=== PATIENT | male | born 1975 | race Caucasian/White ===

== ENCOUNTER 2019-10-14 07:49 | Inpatient (IN) ==
--- NOTE | 2019-10-05 10:32 | History & Physical Report ---
Date of Service October 05, 2019 Assessment & Plan (1) Neurogenic claudication due to lumbar spinal stenosis: This time the patient had a steady decline in status now with marked quad deficits with atrophy. Subsequently we are recommending urgent decompression and fusion at L2-3. This would include removal of instrumentation L3-S1. Hopefully he will be able to regain some quadricep strength and avoid permanent neurologic deficit and sequela. Present on Admission?: Yes History of Present Illness Chief Complaint: Back and bilateral leg pain Primary Care Provider: Zehra Altamirano This is a 44-year-old male who presents with marked decline in status with back and bilateral leg pain extending into his quadriceps and limiting his ability to stand and ambulate. Marked difficulty with ascending and descending stairs. He is failed extensive course of nonoperative care. Allergies Allergy/AdvReac Type Severity Reaction Status Date / Time No Known Allergies Allergy Unverified 09/06/14 21:59 Home Medications Home Medications Medication Instructions Recorded Confirmed Type Multivitamin 1 tab PO DAILY #0 tab 08/11/14 History Ergocalciferol (Vitamin D Cap) 50,000 inter.unit PO WK #0 cap 09/06/14 History Lansoprazole (Prevacid) 15 mg PO DAILY #0 cap 09/06/14 History Oxycodone HCl 5 - 10 mg PO Q4H PRN #120 tab 09/08/14 Rx Physical Exam Physical Exam: Patient is alert and oriented Patient is in obvious distress. He stands and ambulates with a stooped posture. He can only do so for short period time before he must sit down. He has no gross tension signs. He has diminished deep tendon reflexes. He did demonstrates 4/5 bilateral quadriceps and dorsiflexion with a 5 or 5 plantar flexion. Sensory is diminished to bilateral anterior thighs. Heart is regular rate and rhythm Lungs clear to auscultation Results & Data Diagnostic Findings MRI lumbar spine demonstrates evidence of previous lumbar decompression and fusion L3-S1. Instrumentation is placed in proper alignment well decompressed. At L2-3 is marked degenerative change to space collapse evidence of anterolisthesis and bilateral neural foraminal disease. Axillary views demonstrate severe central lateral recess stenosis subarticular disease L2-3.
--- NOTE | 2019-10-09 10:07 | Anesthesiology Consultation ---
Date of Service October 09, 2019 Assessment & Plan (1) Encounter for pre-operative examination: Chart Review Chart Review: Acceptable Risk for Surgery (pending preop testing DOS ) and Patient NOT seen in Pre Admission Testing Pt was not seen in PAT. No preop testing noted as of 10/09/19. Will order CBC, PRP, and EKG AM of surgery History Surgery Operation Date: 10/14/19 07:15 Proposed Procedures p L2-L3 Decompression and Fusion, L3-S1 Hardware Removal - Joey Villanueva DO Height/Weight Height: 5 ft 8 in Weight: 102.058 kg Allergies Allergy/AdvReac Type Severity Reaction Status Date / Time No Known Allergies Allergy Verified 10/09/19 09:28 Medications Home Medications Medication Instructions Recorded Confirmed Last Taken Cholesterol Medication 1 tab PO HS 10/09/19 10/09/19 Unknown cyanocobalamin (vitamin B-12) 1,000 mcg PO QAM 10/09/19 10/09/19 Unknown diclofenac sodium 50 mg PO BID 10/09/19 10/09/19 Unknown duloxetine [Cymbalta] 60 mg PO BID 10/09/19 10/09/19 Unknown ergocalciferol (vitamin D2) 50,000 unit PO WK 10/09/19 10/09/19 Unknown [Vitamin D2] folic acid 1 mg PO QAM 10/09/19 10/09/19 Unknown gabapentin 600 mg PO TID PRN 10/09/19 10/09/19 Unknown Past Medical History Medical History Borderline high blood pressure Chronic back pain Hyperlipidemia Past Family History Family History Father Family history of diabetes mellitus Past Surgical History Surgical History Fusion of spine LUMBAR SURGERY X 2 History of arthroscopy LEFT KNEE ACL History of cholecystectomy History of colonoscopy Hx of vasectomy Social History Smoking Status: Never smoker Do You Dip or Chew Tobacco: No Hx Alcohol Use: Yes Alcohol type: beer alcohol intake frequency: a few times a month Hx Substance Use: No substance use type: does not use
[~2019-10-14 07:49] MED LIST: ACETAMINOPHEN 500 MG TAB PO SCH; CEFAZOLIN 2000MG 2,000 MG/15 ML SYR IV SCH; CeleBREX 200 MG CAP PO SCH; GABAPENTIN 900 MG DOSE PO SCH; LR 15ML/HR IV SCH
[2019-10-14] MEDS ORDERED: fentaNYL citrate 100 MCG/2 ML VIAL IV PRN (08:53)
[2019-10-14] MEDS ORDERED: ONDANSETRON INJ 2 MG/ML 2 ML VIAL IV PRN ×2 (08:53→15:36)
[2019-10-14] MEDS ORDERED: ATROPINE SULFATE 0.1 MG/ML 10ML SYR IV PRN (08:53)
[2019-10-14] MEDS ORDERED: ePHEDrine sulfate 50 MG/ML AMP IV PRN (08:53)
[2019-10-14] MEDS ORDERED: HYDROmorphone INJ 0.5 MG/0.5 ML SYR IV PRN ×2 (08:55→15:36)
[2019-10-14 08:58] LABS: Partial Thromboplastin Ratio 0.9; Partial Thromboplastin Time 26.4 Seconds (21.0-31.0)
[2019-10-14] MEDS ORDERED: ONDANSETRON INJ 2 MG/ML 2 ML VIAL ONE (09:56)
[2019-10-14] MEDS ORDERED: ROCURONIUM BROMIDE 10 MG/ML 5 ML VIAL ONE ×5 (09:56→11:35)
[2019-10-14] MEDS ORDERED: NEOSTIGMINE METHYLSULFATE 5 MG/5 ML SYR ONE (09:56)
[2019-10-14] MEDS ORDERED: LIDOCAINE HCL 2% 2 ML VIAL/AMP(20MG/ML) INFIL ONE (09:56)
[2019-10-14] MEDS ORDERED: fentaNYL citrate 100 MCG/2 ML VIAL ONE ×2 (09:56→13:09)
[2019-10-14] MEDS ORDERED: MIDAZOLAM HCL 1 MG/ML 2ML VIAL ONE (09:56)
[2019-10-14] MEDS ORDERED: PROPOFOL IV EMULSION 10 MG/ML 20 ML VIAL IV ONE (09:56)
[2019-10-14] MEDS ORDERED: GLYCOPYRROLATE 0.2 MG/ML VIAL ONE (09:56)
--- NOTE | 2019-10-14 10:07 | History & Physical Bridge Note ---
Date of Service October 14, 2019 History & Physical Bridge Note I have examined the patient, reviewed the History & Physical and in the interval since the performance of the History & Physical I have noted the following changes of clinical significance: no changes noted
[2019-10-14] MEDS ORDERED: BACITRACIN INJ 50,000 UNIT VIAL ONE (10:42)
[2019-10-14] MEDS ORDERED: BUPIVACAINE/EPINEPHRINE 0.5% MPF 1:200,000 10 ML VIAL ONE (10:42)
[2019-10-14] MEDS ORDERED: PHENYLEPHRINE 100MCG/ML 5ML SYR ONE (11:35)
[2019-10-14] MEDS ORDERED: DEXAMETHASONE SOD INJ 4 MG/ML VIAL ONE (11:35)
[2019-10-14] MEDS ORDERED: FLOSEAL HEMOSTATIC MATRIX 10ML TOP ONE (12:11)
[2019-10-14] MEDS ORDERED: PHENYLEPHRINE HCL 10 MG/ML VIAL ONE (13:05)
[2019-10-14] MEDS ORDERED: SURGICEL ABSORB HEMOSTAT 2IN X 14IN TOP ONE (13:06)
--- NOTE | 2019-10-14 13:17 | Operative Report ---
Post Operative Report Pre & Post Diagnosis Operation Date: 10/14/19 09:15 Pre-Op Diagnosis: Neurogenic Claudication and Spinal Stenosis L2-L3; Previous Fusion L3-S1 Post-Op Diagnosis: Neurogenic Claudication and Spinal Stenosis L2-L3; Previous Fusion L3-S1 I identified the patient and participated in the time-out.: Yes Procedure Operation Date: 10/14/19 09:15 Actual Procedures #1 removal of segmental instrumentation L3-S1. #2 exploration of fusion L3 S1. #3 lumbar decompression with bilateral medial facetectomy foraminotomies L2-L3. #4 posterior spinal fusion L2-L3. #5 placement posterior instrumentation L2-3. #6 interbody fusion L2-3. #7 placed a peek cage 9 x 26 mm at L2-3. #8 placement locally harvested morselized autograft in the posterior lateral gutters. #9 placement infuse collagen sponge bone master graft in the posterior lateral gutters and ostial amp interbody space. Surgeon Joey Villanueva, DO Safety Net Maker Grazyna Horvath Estimated Blood Loss 500 Findings See Below Patient is 5 foot 8 inches tall weighing over 104 kg with a BMI of 35. This combined with an EBL of over 500 cc created significant technical difficulty requiring her deepest retractors and longer instruments in order to perform this procedure. This at least 50% increase to the operative time. Specimens None Indications This is a 44-year-old male who presents with marked decline in status increasing weakness and subsequently recommended urgent decompression fusion. Description of Procedure Patient was met with identified informed consent obtained. Patient was then taken to the operative suite underwent intubation placed in a prone position on the David table on top of the Yeyo frame. All bony prominences well-padded eyes inspected to ensure no external pressure was prompt at this point the lumbar spine was prepped and draped in a normal sterile fashion. Sharp dissection with the assistance of Bovie cautery was performed down to and exposing the lamina and transverse processes of L2 and instrumentation at L3-L4 and L5 and S1 levels bilaterally. Then proceeded move the hardware bilaterally exploring the fusion mass noting it to be intact. Then performed a complete laminectomy of L2 including bilateral medial facetectomies foraminotomies addressing severe spinal stenosis. Pedicle screws were then placed in L2 and L3 bilaterally with assistance of fluoroscopy and proper sized april placed. By way of a transforaminal approach on the left complete discectomy was performed endplates curetted to subcortical bleeding bone. Endplates curetted to subcortical bleeding bone and a 9 x 26 mm peek cage filled with osteo-bone graft tapped in position. The rods were then locked in final position bilaterally. The transverse processes of L to L3 burred to subcortical bleeding bone. Infuse collagen sponge mass graft local autograft was then placed in the posterior lateral gutters. 15 round RINA drain inserted. The incision was then closed with 1 Vicryl in the fascia 2-0 Vicryl subcutaneously and 4 Monocryl for final skin closure. Steri-Strip sterile dressings placed. Patient will continue to PACU stable disc. Please note spinal cord monitoring was utilized at the procedure no changes noted. Lastly Grazyna Horvath was present at the entire procedure involved the patient positioning complex portions of the surgery and final skin closure. I attest to the content of the Intraoperative Record and any orders documented therein. Any exceptions are noted below.
[2019-10-14] MEDS ORDERED: HYDROmorphone INJ 2 MG/ML SYR/VIAL ONE (13:24)
--- NOTE | 2019-10-14 13:39 | Fluoroscopy Report ---
FL lumbar spine 2-3V CLINICAL HISTORY: 44 years-old Male presenting with L2-3 DECOMP/FUSION, L3-S1 HARDWARE REMOVAL. TECHNIQUE: 2 fluoroscopic image(s) recorded as part of an intraoperative procedure. COMPARISON: 07/23/2012. FINDINGS/IMPRESSION: Bilateral posterior transpedicular screw and april fixation of two adjacent levels in the mid lumbar sp ine with interbody spacer and laminectomy. Additional interbody spacers noted at the level below this . Grossly normal anatomic alignment. Please see surgical report for further details. Fluoroscopy dosage (mGy): 8.38. Fluoroscopy time: 11.4 seconds. Number or time of high level fluoroscopy (HLF), digital spot, or digital subtraction images: 0. ACT 112: Negative or not required by law. Electronically signed by: Tony Newman M.D. 10/14/2019 1:38 PM
--- NOTE | 2019-10-14 14:21 | Anesthesiology Progress Note ---
Date of Service October 14, 2019 Anesthesia Post Procedure Vital Signs Vital Signs: Temp Pulse Pulse Resp BP Pulse Ox 10/14/19 14:15 64 15 97/65 L 94 10/14/19 14:05 77 19 102/74 95 10/14/19 13:59 97.3 F L 79 19 104/70 94 10/14/19 08:34 98.4 F 90 18 148/104 H 97 Pain Intensity Back: Pain Intensity: 2 Transfer of Care Handoff Completed per policy Notes Mental Status: alert / awake / arousable and participated in evaluation Patient Amnestic to Procedure: Yes Nausea / Vomiting: adequately controlled Pain: adequately controlled Airway Patency, RR, SpO2: stable & adequate BP & HR: stable & adequate Hydration State: stable & adequate Anesthetic Complications: no major complications apparent and Pt Satisfied with anesthetic care
[2019-10-14] MEDS ORDERED: DO NOT ADMINISTER FLU VACCINE PRN (15:36)
[2019-10-14] MEDS ORDERED: ACETAMINOPHEN 500 MG TAB PO PRN (15:36)
[2019-10-14] MEDS ORDERED: ACETAMINOPHEN 1,000 MG/100 ML VIAL IV PRN (15:36)
[2019-10-14] MEDS ORDERED: PROMETHAZINE HCL 12.5 MG in SODIUM CHLORIDE 0.9% 50 ML IV PRN (15:36)
[2019-10-14] MEDS ORDERED: DO NOT ADMINISTER PNEUMOCOCCAL VACCINE PRN (15:36)
[2019-10-14] MEDS ORDERED: LORazepam 0.5 MG/1 ML VIAL IV PRN (15:36)
[2019-10-14] MEDS ORDERED: LORazepam 0.5 MG TAB PO PRN (15:36)
[2019-10-14] MEDS ORDERED: SOD PHOSPHATE/SOD BIPHOSPHATE ENEMA 132 ML BTL PR PRN (15:36)
[2019-10-14] MEDS ORDERED: ALUMINUM/MAGNESIUM SUSP 30 ML UDC PO PRN (15:36)
[2019-10-14] MEDS ORDERED: bisacodyL 10 MG SUPP PR PRN (15:36)
[2019-10-14] MEDS ORDERED: TRAMADOL HCL 50 MG TABLET PO PRN (15:36)
[2019-10-14] MEDS ORDERED: HYDROmorphone INJ 1 MG/ML SYRINGE IV PRN (15:36)
[2019-10-14] MEDS ORDERED: MAGNESIUM HYDROXIDE SUSP 30 ML UDC PO PRN (15:36)
[2019-10-14] MEDS ORDERED: FAMOTIDINE 20 MG TAB PO PRN (15:36)
[2019-10-14] MEDS ORDERED: ONDANSETRON 4 MG OD TAB PO PRN (15:36)
[2019-10-14] MEDS ORDERED: NALOXONE HCL 0.4 MG/1 ML VIAL/CARP IV PRN (15:36)
[2019-10-14] MEDS ORDERED: METOCLOPRAMIDE HCL INJ 5 MG/ML 2 ML VIAL IV PRN (15:36)
[2019-10-14] MEDS: LACTATED RINGER'S 1,000 ML IV SCH (18:10)
[2019-10-14] MEDS: KETOROLAC 30 MG/ML VIAL IV SCH (18:11)
[2019-10-14] MEDS: OXYCODONE HCL IR 5 MG TAB (IMMEDIATE RELEASE) PO PRN (20:31)
[2019-10-14] MEDS: CEFAZOLIN 2000MG 2,000 MG/15 ML SYR IV SCH (20:32)
[2019-10-14] MEDS: DULOXETINE HCL 60 MG CAP PO SCH (20:33)
[2019-10-14] MEDS ORDERED: COUGH DROP (SUGAR FREE) LOZ 24 LOZ/1 BOX BUCCAL ONE (20:42)
[2019-10-14] MEDS ORDERED: ATORVASTATIN 40 MG TAB PO SCH (21:00)
[2019-10-14] MEDS ORDERED: TAMSULOSIN HCL 0.4 MG CAP PO SCH (21:00)
[2019-10-14] MEDS ORDERED: DOCUSATE SODIUM/SENNA 50/8.6MG TAB PO SCH (21:00)
[2019-10-15] MEDS: CEFAZOLIN 2000MG 2,000 MG/15 ML SYR IV SCH (03:51)
[2019-10-15 05:09] LABS: Hematocrit (blood only) 32.4 % (42-52); Hemoglobin 10.9 g/dL (14.0-18.0); Immature Granulocytes # (auto) 0.02 K/uL (0.00-0.02); Immature Granulocytes % (auto) 0.2 %; Lymphocytes # (auto) 1.26 K/uL (1.2-3.4); Lymphocytes % (auto) 10.5 %; Mean Corpuscular Hemoglobin 30.8 pg (25-34); Mean Corpuscular Hgb Conc 33.6 g/dL (32-36); Mean Corpuscular Volume 91.5 fL (80-100); Mean Platelet Volume 9.6 fL (7.4-10.4); Monocytes % (auto) 8.4 %; Neutrophils # (auto) 9.67 K/uL (1.4-6.5); Neutrophils % (auto) 80.9 %; Platelet Count 260 K/uL (130-400); RDW Coefficient of Variation 13.4 % (11.5-14.5); RDW Standard Deviation 44.6 fL (36.4-46.3); Red Blood Count 3.54 M/uL (4.7-6.1); White Blood Count 11.95 K/uL (4.8-10.8)
[2019-10-15] MEDS: LACTATED RINGER'S 1,000 ML IV SCH (05:09)
[2019-10-15 05:34] LABS: BUN Creatinine Ratio 21.2 (10-20); Creatinine Clr Calc Pharmacy 91.8 ml/min; Est GFR (Non-African American) 73.3
[2019-10-15] MEDS: POLYETHYLENE (MIRALAX) 17 GM PACK PO SCH ×2 (05:44→11:49)
[2019-10-15] MEDS: KETOROLAC 30 MG/ML VIAL IV SCH ×3 (05:44→11:49)
[2019-10-15] MEDS: DULOXETINE HCL 60 MG CAP PO SCH (08:33)
[2019-10-15] MEDS ORDERED: FOLIC ACID 1 MG TAB PO SCH (09:00)
[2019-10-15] MEDS ORDERED: CYANOCOBALAMIN 500 MCG TABLET (VITAMIN B-12) PO SCH (09:00)
[2019-10-15] MEDS ORDERED: PANTOprazole 40 MG TAB PO SCH (09:00)
[2019-10-15] MEDS: OXYCODONE HCL IR 5 MG TAB (IMMEDIATE RELEASE) PO PRN (14:47)
--- NOTE | 2019-10-15 14:52 | Discharge Summary ---
Date of Service October 15, 2019 Admission HPI Per Admitting Provider This is a 44-year-old male who presents with marked decline in status with back and bilateral leg pain extending into his quadriceps and limiting his ability to stand and ambulate. Marked difficulty with ascending and descending stairs. He is failed extensive course of nonoperative care. Principal Diagnosis Lumbar spinal stenosis with neurogenic claudication Discharge Data Allergies Allergy/AdvReac Type Severity Reaction Status Date / Time No Known Allergies Allergy Verified 10/14/19 08:20 Consultations 10/14/19 15:36 Consult Case Management - Discharge Planning Routine Procedures Performed Operation Date: 10/14/19 09:15 Actual Procedures p L2-L3 Decompression, with Osteoamp Allograft, Application of Bone Morphogen etic Protein, Interbody Fusion L2-L3, Instrumented Fusion L2-S1,Spinal Cord Monitoring(Not Applicable) - Joey Villanueva DO s L3-S1 Hardware Removal(Not Applicable) - Joey Villanueva DO Ordered Studies 10/14/19 09:15 FL fluoroscopy <1hr Routine FL lumbar spine 2-3V Routine Hospital Course (1) Neurogenic claudication due to lumbar spinal stenosis: Patient with lumbar decompression fusion tolerated this well was taken to the orthopedic floor postoperative. Postop day #1 he was up and ambulating leg and back pain improved strength improved. Pain was well controlled. Subsequently patient was discharged home with his drain in place. Discharge orders instructions can be found the chart for further view. Total Time Total Time Spent Total Time Spent (In Minutes): 20 minutes Discharge Plan Discharge Items Patient Disposition: Home - Self-Care Reason For Visit: Spinal Stenosis, Lumbar Region with Neurogenic Cla Discharge Diagnosis: Lumbar spinal stenosis with neurogenic claudication Activity: As commented below Non-emergency contact: Primary Care Provider Call non-emergency contact if: you have any medication questions Follow-up/Referrals: Zehra Altamirano DO [Primary Care Provider] - Diet: Regular Addtl Attending Provider Instructions: ACTIVITY RECOMMENDATIONS: SELF CARE INSTRUCTIONS AFTER THORACIC/LUMBAR FUSIONS 1. You may walk to your tolerance. It is good exercise for your legs and back. Expect some back and intermittent leg aches and pains. 2. You may perform "counter-top" level activities (make a sandwich, keeley with a project, etc.). 3. No bending or lifting of more than 10 pounds or back twisting of any nature (roll like a log when turning in bed). 4. You may ride in a car for 20-30 minutes at a time. No driving until after your first visit with your doctor. 5. Frequent changes of position and restricting sitting to 30 minutes at a time will help limit the amount of back spasms and stiffness you may experience. 6. You may discontinue the use of ambulatory aids (cane, crutches, etc.) once your strength and confidence allow. 7. You may blue prints trimmer the shower and let water strike your incision when you arrive home at least once daily. Do not take a tub bath, sit in a hot tub or go into a swimming pool until after your first recheck in the office. SPECIAL CARE INSTRUCTIONS: VERY IMPORTANT TO READ AND REVIEW A. Your surgical incision has been closed with a cosmetic suture under the skin that will dissolve in about 6 weeks. In 14 days, you can use a pair of clean scissors and cut the suture that is left outside of the skin at the ends of your incision. 1. The small skin tapes can be removed 7 days after surgery if they have not fallen off by that point. 2. You may keep the wound open to air as much as possible to promote healing after post-op day number 5 unless told otherwise by your doctor. 3. If you think the wound looks like it is becoming infected (redness or worsening drainage) and/or you are experiencing fever, chill or worsening back pain and muscle spasms, contact the office so that we may evaluate you as soon as possible. B. Complications are uncommon, but please contact us if you have any signs or symptoms of: 1. wound infection (fever higher than 102.5 degrees F, redness, separation of wound, drainage, or increasing pain from the incision) 2. blood clots in legs (pain, swelling, redness and warmth in legs) 3. urinary tract infection (fever higher than 102.5 degrees F, burning upon urination or increased frequency of urination) 4. nerve problems (inability to walk on your toes or heels, numbness, loss of bowel or bladder control) 5. any other symptoms that concern you C. Please call the office at if you have any concerns or questions about your operation or recovery. D. No smoking! Smoking drastically decreases the chance of a solid fusion. E. Do not take any anti-inflammatory medications (Indocin, Advil, Motrin, Aspirin, Naprosyn, etc.) as these may inhibit the chance of a solid fusion. Tylenol is okay to take for pain. MANAGING PAIN AFTER SPINAL SURGERY 1. Narcotic medication is intended for short-term use and will be provided for surgical pain. Surgical pain usually lasts for a period of 4-6 weeks. Narcotic medication includes Percocet, Vicodin, Darvocet, Tylenol #3 or Lortab. 2. Longer-term pain is more appropriately treated with non-narcotic medication such as Tylenol ES. 3. Muscle spasm is not appropriately treated with narcotics. Muscle relaxers such as Soma, Flexeril or Skelaxin can be used along with Tylenol ES. 4. Remember that we all live with some "aches and pains". This is not unusual or uncommon after an injury or as we get older. a. Back pain is expected and may include muscle spasms for 4 to 6 weeks after surgery. The pain should gradually improve. If the pain worsens for no apparent reason, please contact the office. b. Intermittent leg pain may also be experienced and should not be concerned about unless it worsens for no apparent reason. If so, please contact the office. 5. We will provide appropriate medication within the normal guidelines of their prescribed use. We will also be very cautious and aware of potential abuse and extended duration of patients' medication needs. a. Pain medications are for your comfort and to assist with sleep and rest so that the tissue can heal. They are not provided in order to return to normal activity and should not be used through the day. To do so or worsening pain at night can result from ongoing tissue damage and development of tolerance to the prescribed medicine. 6. Please allow 2-3 days to process refills. Prescriptions will not be mailed but must be picked up at the office. FOLLOW UP VISIT: Keep your scheduled follow-up appointment. Any questions, please call the office at . Pending Studies at Discharge: No Stand-Alone Forms: My [employer], Opioid Pain Management, Smoking Cessation Medications and DC Order Prescriptions: New tramadol 50 mg tablet 50 mg PO Q6H PRN (Reason: pain, moderate) Qty: 30 RF: 0 oxycodone 5 mg tablet 5 mg PO Q6H PRN (Reason: pain, severe) Qty: 30 RF: 0 Continued gabapentin 600 mg Tablet 600 mg PO TID PRN (Reason: Pain) RF: 0 cyanocobalamin (vitamin B-12) 1,000 mcg Tablet 1,000 mcg PO QAM RF: 0 folic acid 1 mg Tablet 3 mg PO QAM RF: 0 ergocalciferol (vitamin D2) [Vitamin D2] 1,250 mcg (50,000 unit) Capsule 50,000 unit PO WK RF: 0 duloxetine [Cymbalta] 60 mg Capsule,Delayed Release(Dr/Ec) 60 mg PO BID RF: 0 atorvastatin 40 mg Tablet 40 mg PO HS RF: 0 tamsulosin 0.4 mg Capsule 0.4 mg PO QPM RF: 0 lansoprazole [Prevacid] 15 mg Capsule,Delayed Release(Dr/Ec) 15 mg PO QAM RF: 0 diclofenac sodium 75 mg Tablet,Delayed Release (Dr/Ec) 75 mg PO BID RF: 0 Discontinued methotrexate sodium 2.5 mg Tablet 2.5 mg PO UD RF: 0 Discharge Orders: Discharge Order (Routine); Ordered 10/15/19 Ordered By: Joey Nixon/Other Patient Handouts: DVT Post Op Prevention Admission Data Admit Date/Time: 10/14/19 14:12 Attending Provider: Joey Villanueva Admit Provider: Joey Villanueva Primary Care Provider: Zehra Altamirano Other Interventions: Discharge Summary Assessment (RN) Last Done: 10/15/19 14:22
[2019-10-15] MEDS ORDERED: [UNRECOGNIZED DRUG - REMARK] SCH (18:00)
[2019-10-19] MEDS ORDERED: ERGOCALCIFEROL 50,000 UNITS CAP PO SCH (09:00)
== END 2019-10-15 15:55 | disposition home or self-care (01) | DRG 455 ==
LOC: ASU 07:49 → 3E 14:12